=== PATIENT | female | born 1990 | race African-American/Black ===

== ENCOUNTER 2017-06-22 17:22 | Emergency (ER) | payer OTHER ==
[~2017-06-22] VITALS: Ht 162.6 cm; Wt 95.3 kg
[2017-06-22 17:35] VITALS: BP 150/99
[2017-06-22] MEDS ORDERED: HIBICLENS118 ML TOP (18:04)
== END 2017-06-22 18:49 | disposition home or self-care (01) ==
LOC: ER 17:22
DX: L02.214 Cutaneous abscess of groin (principal); L73.2 Hidradenitis suppurativa; J45.909 Unspecified asthma, uncomplicated; Z98.890 Other specified postprocedural states